=== PATIENT | male | born 1970 | race Caucasian/White ===

== ENCOUNTER 2025-09-23 06:38 | Emergency (ER) | payer BC ==
[~2025-09-23] VITALS: Ht 170.2 cm; Wt 102.1 kg
--- NOTE | 2025-09-23 07:20 | Physician Documentation ---
History of Present Illness ~ Chief Complaint: Foot pain Stated Complaint: FOOT SWELLING Time Seen by MD: 06:50 Mode of Arrival: POV HPI 55 year old male with L ankle pain and swelling for several weeks. It began bothering him at work but he had no known injury. He does have a distant prior bimalleolar injury of the ankle. He also has a history of gout but usually in his great toes and not his ankle. He denies fever, N/V/D, cough, shortness of breath. Tetanus witin 5 years: Yes Medication Reconciliation Allergies: Coded Allergies: No Known Allergies (Unverified , 09/23/25) Review of Systems All Other Systems at this time: Reviewed and Negative Physical Exam Vital Signs: RN Vital Signs have been reviewed: Yes, Temperature: 98.3, Source: Temporal, Heart Rate: 77, Respiratory Rate: 18, BP: 134/59, Pulse Oximetry: 97, Weight: 102.100 Oxygen Flow Rate: 0 Physical Exam Gen: no distress HEENT: PERRL, EOMI Pulm: no distress, CTAB Cardiac: RRR no m/c/r Abdomen: s/nt/nd MSK: no deformity; L ankle with diffuse swelling and tenderness but no warmth or erythema Skin: w/d/i Neuro: nonfocal Psych: unremarkable Progress Results/Orders Results/Orders Orders - ELEONORA SALAZAR MD Ankle, Complete(3vw Min) (09/23/25 07:02) Colchicine Tablet (Colchicine Tablet) (09/23/25 07:25) Completed Orders - ELEONORA SALAZAR MD Ankle, Complete(3vw Min) (09/23/25 07:02) Ketorolac Trometh 30mg/Ml Vial (Toradol (09/23/25 07:20) Vital Signs 09/23/25 09/23/25 09/23/25 06:45 07:06 07:06 Temp 98.3 Pulse 71 77 Resp 18 18 B/P (MAP) 180/97 134/59 (84) Pulse Ox 97 97 O2 Flow Rate 0 0 Medical Decision Making Additional information obtaine: N/A Findings 55 year old male with atraumatic L ankle swelling. Likely osteoarthritis rather than gout, and L ankle xray interpreted by me demonstrated some chronic arthritis findings but no evidence of dislocation or fracture. NSAIDs, offered empiric gout therapy, counseled, reassured, discharged with return precautions. General Diff Dx:Considerations: Include: Other Knee Diff Dx:Considerations: Include: Other Ankle Diff Dx:Considerations: Include: Other Foot Diff Dx:Considerations: Include: Other Toe Diff Dx:Considerations: Include: Other Additional Comment Ddx = gout, osteoarthritis, sprain, fracture, dislocation Departure Disposition: 01 HOME / SELF CARE / HOMELESS Impression: Primary Impression: Osteoarthritis Condition: Stable Discharge Instructions: Osteoarthritis Referrals: NO PRIMARY CARE PROVIDER (PCP) Education Educated: Patient Educated regarding: diagnosis, treatment, prognosis, need for follow up Signature Scribe Signature: . Attestation: . ELEONORA SALAZAR MD Sep 23, 2025 07:20
--- NOTE | 2025-09-23 07:22 | RADIOLOGY REPORT ---
PROCEDURE: Left ankle radiographs. INDICATION: swelling TECHNIQUE: 3 views of the left ankle were obtained. COMPARISON: None FINDINGS: There is no evidence of fracture or dislocation. Circumscribed ossicle inferior to the lateral malleolus representing sequelae of an old injury. Joint spaces are maintained. The soft tissues are unremarkable. IMPRESSION: 1. No fracture or dislocation.
[2025-09-23] MEDS: ketorolac trometh 30MG/ML vial 30 MG/ML VIAL IM ONE (07:44)
[2025-09-23 07:56] VITALS: BP 139/84; PULSE 68; RESP 19; TEMP 98.3; O2SAT 99
== END 2025-09-23 08:02 | disposition home or self-care (01) ==
LOC: ER 06:40
DX: M19.072 Primary osteoarthritis, left ankle and foot (principal); M10.9 Gout, unspecified
CPT/HCPCS: 73610; 96372; 99283; J1885